=== PATIENT | female | born 1975 | race African-American/Black ===

== ENCOUNTER 2018-12-17 14:42 | Emergency (ER) | payer OTHER ==
[~2018-12-17] VITALS: Ht 165.1 cm; Wt 74.8 kg
[~2018-12-17 14:42] MED LIST: CHOL100013 PO; FERR325T58 PO; PREN1TAB58 PO
[2018-12-17] MEDS ORDERED: IV NORMAL SALINE 1,000ML 1,000 ML IV SCH (15:03)
--- NOTE | 2018-12-17 15:03 | PHYS DOC ---
Past History Past Medical History: No Pertinent History, Ovarian Cyst Additional Past Surgical Histo: dermoid cyst removal Smoking: Non-smoker Alcohol Use: None Drug Use: None Adult General Chief Complaint Chief Complaint: ABDOMINAL PAIN HPI HPI Patient is a 43-year-old female who presents to the emergency department for evaluation. She ate out in a restaurant in [place] on Friday, and states that on the way home she developed several episodes of vomiting, and had diarrhea on Friday as well. Her other family members who dined with her did not have similar symptoms but none of them had fish which she had. She states that she has some intermittent central abdominal cramping since that time and persistent nausea, although she has not had any diarrhea since Friday, and not vomited since Friday. She has not had any fevers or chills. She has not had any bloody emesis or stools, and denies any recent antibiotic use. There are no alleviating or exacerbating factors to her symptoms, although she has been limiting her oral intake to clear liquids secondary to nausea. Review of Systems Review of Systems Constitutional: Denies fever or chills [] Eyes: Denies change in visual acuity, redness, or eye pain [] HENT: Denies nasal congestion or sore throat [] Respiratory: Denies cough or shortness of breath [] Cardiovascular: The patient denies any shortness of breath, chest pain, palpitations, or orthopnea[] GI: No additional information not addressed in HPI [] : Denies dysuria or hematuria. Denies vaginal discharge, or missed periods. Has an IUD in place. Denies pelvic pain. [] Musculoskeletal: Denies back pain or joint pain [] Integument: Denies rash or skin lesions [] Neurologic: Denies headache, focal weakness or sensory changes [] Endocrine: Denies polyuria or polydipsia [] All other systems were reviewed and found to be within normal limits, except as documented in this note. Allergies Allergies Allergies Coded Allergies Type Severity Reaction Last Updated Verified No Known Drug Allergies 10/04/13 No Physical Exam Physical Exam PHYSICAL EXAM: CONSTITUTIONAL: Well developed, well nourished HEAD: normocephalic, atraumatic EENT: PERRL, EOMI. Conjunctivae normal color, sclerae non-icteric; moist mucous membranes. NECK: Supple, non-tender; no meningismus. LUNGS: Lungs CTA, breathing even and unlabored. Normal air movement. HEART: Regular rate and rhythm, no murmur CHEST: No deformity; non-tender ABDOMEN: The abdomen is soft, bowel sounds are present, there is mild diffuse tenderness to palpation to the entire abdomen, without focal tenderness, rebound, or guarding, although the right upper quadrant, and suprapubic area are both relatively non-tender, no masses or bruits. EXTREM: Normal ROM; no deformity, no calf tenderness. Normal pulses palpable in all extremities. There is no pedal edema. SKIN: No rash; no diaphoresis NEURO: Alert; normal speech and cognition; CN's grossly intact; strength grossly intact without focal deficit. BACK: No CVA TTP. Current Patient Data Lab Results Laboratory Tests Test 12/17/18 15:16 12/17/18 15:23 12/17/18 15:49 White Blood Count 7.1 x10^3/uL Red Blood Count 3.98 x10^6/uL Hemoglobin 12.1 g/dL Hematocrit 36.1 % Mean Corpuscular Volume 91 fL Mean Corpuscular Hemoglobin 31 pg Mean Corpuscular Hemoglobin Concent 34 g/dL Red Cell Distribution Width 13.2 % Platelet Count 208 x10^3/uL Neutrophils (%) (Auto) 67 % Lymphocytes (%) (Auto) 21 % Monocytes (%) (Auto) 10 % Eosinophils (%) (Auto) 1 % Basophils (%) (Auto) 1 % Neutrophils # (Auto) 4.8 x10^3uL Lymphocytes # (Auto) 1.5 x10^3/uL Monocytes # (Auto) 0.7 x10^3/uL Eosinophils # (Auto) 0.1 x10^3/uL Basophils # (Auto) 0.0 x10^3/uL Bedside Urine HCG, Qualitative hcg negative Sodium Level 136 mmol/L Potassium Level 3.4 mmol/L Chloride Level 104 mmol/L Carbon Dioxide Level 25 mmol/L Anion Gap 7 Blood Urea Nitrogen 7 mg/dL Creatinine 0.9 mg/dL Estimated GFR (Cockcroft-Gault) 83.1 BUN/Creatinine Ratio 8 Glucose Level 83 mg/dL Calcium Level 8.1 mg/dL Total Bilirubin 0.5 mg/dL Aspartate Amino Transf (AST/SGOT) 15 U/L Alanine Aminotransferase (ALT/SGPT) 14 U/L Alkaline Phosphatase 55 U/L Total Protein 6.9 g/dL Albumin 3.3 g/dL Albumin/Globulin Ratio 0.9 Lipase 123 U/L Current Medications Medications (Trade) Dose Ordered Sig/Yakelin Route PRN Reason Start Time Stop Time Status Last Admin Dose Admin Sodium Chloride 1,000 ml @ 1,000 mls/hr Q1H IV 12/17/18 15:03 12/17/18 16:02 DC 12/17/18 15:23 Ondansetron HCl (Zofran) 4 mg 1X ONCE IVP 12/17/18 15:15 12/17/18 15:30 DC 12/17/18 15:22 Iohexol (Omnipaque 300 Mg/ml) 75 ml 1X ONCE IV 12/17/18 15:45 12/17/18 15:46 DC 12/17/18 15:33 EKG EKG [] Radiology/Procedures Radiology/Procedures PROCEDURE: CT ABD PELV W/ IV CONTRST ONLY Exam: CT abdomen and pelvis with contrast INDICATION: Abdominal pain TECHNIQUE: Sequential axial images through the abdomen and pelvis obtained following the administration of 75 mL of Omni 300 IV contrast. Sagittal and coronal reformatted images were reconstructed from the axial data and reviewed. Comparisons: None FINDINGS: Heart size is normal. No pericardial effusion. Visualized lung bases are clear. No pleural effusion. 6 mm nodule in the lingula series 2 image 79. Liver, spleen, pancreas, gallbladder and adrenals are unremarkable. Kidneys demonstrate symmetric enhancement. No perinephric inflammation or hydronephrosis. No renal or ureteral calculi are identified. Bladder is distended and appears thin-walled. Uterus is not enlarged. IUD is noted within the uterus. No abnormal adnexal mass. Large and small bowel are unremarkable. Appendix is normal. Trace free fluid in the pelvis. No free intra-abdominal air. Abdominal aorta has a normal course and caliber. Abdominal vasculature is patent. No enlarged intra-abdominal lymph nodes are identified. No suspicious osseous lesions or acute fractures. IMPRESSION: 1. Trace free fluid in the pelvis, likely physiologic. 2. IUD in the uterus. 3. Otherwise, no acute process identified within the abdomen or pelvis. 4. A 6 mm nodule in the lingula as described above. In a low-risk patient no further follow-up imaging is recommended. In a high-risk patient and optional one-year follow-up CT can BE performed.[] Course & Med Decision Making Course & Med Decision Making Pertinent Labs and Imaging studies reviewed. (See chart for details) []4:40 PM: The patient's condition remains stable. I discussed test results with the patient, the need for close outpatient follow-up, symptomatically management, and return precautions. She declined the need for an antinausea medication, but would be willing to try an antacid spasmodic. Dragon Disclaimer Dragon Disclaimer This electronic medical record was generated, in whole or in part, using a voice recognition dictation system. Departure Departure: Impression: Primary Impression: Abdominal pain Additional Impression: Nausea vomiting and diarrhea Disposition: HOME, SELF-CARE Condition: STABLE Referrals: PCP,UNKNOWN (PCP) Patient Instructions: Abdominal Pain, Diarrhea, Nausea and Vomiting, Viral Gastroenteritis Scripts Dicyclomine Hcl (DICYCLOMINE HCL) 20 Mg Tablet 1 TAB PO Q6HRS PRN for abdominal pain, #20 TAB Prov: RUBÉN MCDERMOTT MD 12/17/18 Problem Qualifiers RUBÉN MCDERMOTT MD Dec 17, 2018 15:03
[2018-12-17] MEDS ORDERED: ONDANSETRON PF 4 MG/2 ML VIAL. IVP ONE (15:15)
[2018-12-17 15:27] VITALS: BP 116/79
[2018-12-17 15:39] LABS: BASO % 1 % (0-3); EOS # 0.1 x10^3/uL (0.0-0.7); EOS % 1 % (0-3); HEMATOCRIT 36.1 % (36.0-47.0); HEMOGLOBIN 12.1 g/dL (12.0-15.5); LYMPH # 1.5 x10^3/uL (1.0-4.8); LYMPH % 21 % (24-48); MEAN CORPUSCULAR HEMOGLOBIN 31 pg (25-35); MEAN CORPUSCULAR HGB CONC 34 g/dL (31-37); MEAN CORPUSCULAR VOLUME 91 fL (79-100); MONO # 0.7 x10^3/uL (0.0-1.1); MONO % 10 % (0-9); NEUT # 4.8 x10^3uL (1.8-7.7); NEUT % 67 % (31-73); PLATELET COUNT 208 x10^3/uL (140-400); RED BLOOD COUNT 3.98 x10^6/uL (3.50-5.40); RED CELL DISTRIBUTION WIDTH 13.2 % (11.5-14.5); WHITE BLOOD COUNT 7.1 x10^3/uL (4.0-11.0)
[2018-12-17] MEDS ORDERED: IOHEXOL 300 MG/ML 75 ML VIAL. IV ONE (15:45)
--- NOTE | 2018-12-17 15:59 | RAD ---
Exam: CT abdomen and pelvis with contrast INDICATION: Abdominal pain TECHNIQUE: Sequential axial images through the abdomen and pelvis obtained following the administration of 75 mL of Omni 300 IV contrast. Sagittal and coronal reformatted images were reconstructed from the axial data and reviewed. Comparisons: None FINDINGS: Heart size is normal. No pericardial effusion. Visualized lung bases are clear. No pleural effusion. 6 mm nodule in the lingula series 2 image 79. Liver, spleen, pancreas, gallbladder and adrenals are unremarkable. Kidneys demonstrate symmetric enhancement. No perinephric inflammation or hydronephrosis. No renal or ureteral calculi are identified. Bladder is distended and appears thin-walled. Uterus is not enlarged. IUD is noted within the uterus. No abnormal adnexal mass. Large and small bowel are unremarkable. Appendix is normal. Trace free fluid in the pelvis. No free intra-abdominal air. Abdominal aorta has a normal course and caliber. Abdominal vasculature is patent. No enlarged intra-abdominal lymph nodes are identified. No suspicious osseous lesions or acute fractures. IMPRESSION: 1. Trace free fluid in the pelvis, likely physiologic. 2. IUD in the uterus. 3. Otherwise, no acute process identified within the abdomen or pelvis. 4. A 6 mm nodule in the lingula as described above. In a low-risk patient no further follow-up imaging is recommended. In a high-risk patient and optional one-year follow-up CT can BE performed. Exposure: One or more of the following in the visualized dose reduction techniques were utilized for this examination: 1. Automated exposure control 2. Adjustment of the MA and/or KV according to patient size 3. Use of iterative of reconstructive technique Electronically signed by: Jose German MD (12/17/2018 3:55 PM) [facility]
[2018-12-17 16:17] LABS: ALBUMIN 3.3 g/dL (3.4-5.0); ALBUMIN/GLOBULIN RATIO 0.9 (1.0-1.7); CALCIUM 8.1 mg/dL (8.5-10.1); CREATININE 0.9 mg/dL (0.6-1.0); GFR 83.1; POTASSIUM 3.4 mmol/L (3.5-5.1); TOTAL BILIRUBIN 0.5 mg/dL (0.2-1.0); TOTAL PROTEIN 6.9 g/dL (6.4-8.2)
[2018-12-17] MEDS ORDERED: DICY20TA3 PO (16:41)
[2018-12-17] MEDS ORDERED: DICYCLOMINE HCL 20 MG TABLET ONE (16:44)
[2018-12-17] MEDS ORDERED: DICYCLOMINE HCL 20 MG TABLET PO ONE (16:45)
== END 2018-12-17 16:52 | disposition home or self-care (01) ==
LOC: ER 14:42
DX: R10.84 Generalized abdominal pain (principal); R11.2 Nausea with vomiting, unspecified; R19.7 Diarrhea, unspecified
CPT/HCPCS: 36415; 74177; 80053; 81025; 83690; 85025; 96361; 96374; 99285; J2405; Q9967; J7030

== ENCOUNTER 2019-03-04 19:29 | Emergency (ER) | payer OTHER ==
[~2019-03-04] VITALS: Ht 167.6 cm; Wt 87.7 kg
[2019-03-04 19:29] VITALS: BP 128/80
[~2019-03-04 19:29] MED LIST changes: +DICY20TA3 PO
--- NOTE | 2019-03-04 20:30 | PHYS DOC ---
Past History Past Medical History: Ovarian Cyst Past Surgical History: Other Additional Past Surgical Histo: ovarian cyst removal Smoking: Non-smoker Alcohol Use: None Drug Use: None Adult General Chief Complaint Chief Complaint: MECHANICAL FALL ".. I twisted my Lt ankle today.. and fell on my Lt side... that was about 1:30 pm.. and it still hurts.." [facility] HPI Patient is a 43 year old female who presents with above hx and complaints of Lt. foot and ankle pain. Patient has been walking on ankle since injury. Has obvious edema of lateral malleolus of left ankle. Distal neurovascular intact. Positive foot squeeze. Pain in lateral malleolus on inversion and with traction. Some mild distal tibia pain. Patient denies other injury in the fall. Pt. normally follows at [place]. Review of Systems Review of Systems Constitutional: Denies fever or chills [] Eyes: Denies change in visual acuity, redness, or eye pain [] HENT: Denies nasal congestion or sore throat [] Respiratory: Denies cough or shortness of breath [] Cardiovascular: No additional information not addressed in HPI [] GI: Denies abdominal pain, nausea, vomiting, bloody stools or diarrhea [] : Denies dysuria or hematuria [] Musculoskeletal: Denies back pain or joint pain [. Pt has]complaints of left ankle and foot pain Integument: Denies rash or skin lesions [] Neurologic: Denies headache, focal weakness or sensory changes [] Endocrine: Denies polyuria or polydipsia [] All other systems were reviewed and found to be within normal limits, except as documented in this note. Family History Family History Noncontributory Current Medications Current Medications See nursing for home meds Allergies Allergies Allergies Coded Allergies Type Severity Reaction Last Updated Verified No Known Drug Allergies 10/04/13 No Physical Exam Physical Exam Constitutional: Well developed, well nourished moderately acute distress, non- toxic appearance. [] HENT: Normocephalic, atraumatic, bilateral external ears normal, oropharynx moist, no oral exudates, nose normal. [] Eyes: PERRLA, EOMI, conjunctiva normal, no discharge. [] Neck: Normal range of motion, no tenderness, supple, no stridor. [] Cardiovascular:Heart rate regular rhythm, no murmur [] Lungs & Thorax: Bilateral breath sounds clear to auscultation [] Abdomen: Bowel sounds normal, soft, no tenderness, no masses, no pulsatile masses. [] Skin: Warm, dry, no erythema, no rash. [] Back: No tenderness, no CVA tenderness. [] Extremities: No tenderness, no cyanosis, no clubbing, ROM intact, no edema. [] Except findings in left ankle as per history of present illness Neurologic: Alert and oriented X 3, normal motor function, normal sensory function, no focal deficits noted. [] Psychologic: Affect anxious, judgement normal, mood normal. [] EKG EKG [] Radiology/Procedures Radiology/Procedures [][place] [address] IMAGING REPORT Signed PATIENT: PUMA MCKNIGHT RACCOUNT: [id number] : 1975 LOCATION: ER AGE: 43 SEX: F EXAM STATUS: REG ER ORD. PHYSICIAN: МАРИЯ BAILEY MD REASON: Injury from fall tonight, left ankle and foot pain PROCEDURE: ANKLE LEFT 3V Left ankle 3 views, left foot 3 views. HISTORY: Injury from fall Left ankle 3 views were taken of the left ankle. There is no acute fracture or osseous abnormality. Left foot 3 views were taken of the left foot. There is not evidence of an acute fracture or osseous abnormality. IMPRESSION: 1. No acute fracture noted in the left foot. 2. No acute fracture noted in the left ankle. Electronically signed by: Anamika Bailey MD (03/04/2019 8:52 PM) [facility] DICTATED AND SIGNED BY: ANAMIKA BAILEY MD DATE: 03/04/192051 CC: МАРИЯ BAILEY MD; PCP,UNKNOWN ~ Course & Med Decision Making Course & Med Decision Making Pertinent Labs and Imaging studies reviewed. (See chart for details) Ice, elevation, splint, and follow-up primary care. Take Tylenol and ibuprofen for pain. For marked pain may take Vicoprofen up to 4 times a day. Distal neurovascular intact after application ankle splint []Impression- 1. Ankle and foot sprain-left Dragon Disclaimer Dragon Disclaimer This electronic medical record was generated, in whole or in part, using a voice recognition dictation system. Departure Departure: Disposition: 01 HOME/RESIDENCE PRIOR TO ADM Condition: STABLE Referrals: PCP,UNKNOWN (PCP) Scripts Hydrocodone/Ibuprofen (HYDROCODONE-IBUPROFEN 7.5-200 ) 1 Each Tablet 1 TAB PO PRN Q6HRS PRN for PAIN, #30 TAB 0 Refills Prov: МАРИЯ BAILEY MD 03/04/19 Dragon Disclaimer This chart was dictated in whole or in part using Voice Recognition software in a busy, high-work load, and often noisy Emergency Department environment. It may contain unintended and wholly unrecognized errors or omissions. Dragon Disclaimer This chart was dictated in whole or in part using Voice Recognition software in a busy, high-work load, and often noisy Emergency Department environment. It may contain unintended and wholly unrecognized errors or omissions. МАРИЯ BAILEY MD Mar 04, 2019 20:30
[2019-03-04] MEDS ORDERED: HYDROcodon/IBUPROFEN 7.5/200MG 1 TAB TABLET PO ONE (20:45)
--- NOTE | 2019-03-04 20:54 | RAD ---
Left ankle 3 views, left foot 3 views. HISTORY: Injury from fall Left ankle 3 views were taken of the left ankle. There is no acute fracture or osseous abnormality. Left foot 3 views were taken of the left foot. There is not evidence of an acute fracture or osseous abnormality. IMPRESSION: 1. No acute fracture noted in the left foot. 2. No acute fracture noted in the left ankle. Electronically signed by: Nba Borrego MD (03/04/2019 8:52 PM) [facility]
[2019-03-04] MEDS ORDERED: HYDR-1179 PO (21:52)
== END 2019-03-04 22:10 | disposition home or self-care (01) ==
LOC: ER 19:29
DX: S93.602A Unspecified sprain of left foot, initial encounter (principal); S93.402A Sprain of unspecified ligament of left ankle, initial encounter; W18.39XA Other fall on same level, initial encounter; Y93.89 Activity, other specified; Y92.89 Other specified places as the place of occurrence of the external cause; Y99.8 Other external cause status
CPT/HCPCS: 29515; 73610; 73630; 99284